=== PATIENT | male | born 1980 | race Caucasian/White ===

== ENCOUNTER → 2017-05-03 | Outpatient (CLI) | payer MEDICARE, MEDICAID ==
[~2017-05-03] MED LIST: ALDACTONE PO; ATIVAN; ATIVAN 0.50.5 MG/TAB PO; ATIVAN 1MG T1 MG/TAB PO; ATIVAN 2MG2 MG PO; ATIVAN1 MG PO; AUGMENTIN 875 M1 TAB PO; CELEXA40 MG PO; CLONAZEPAM PO; ESTROGEN PATCH; FLONASE NASAL S16 GM NS; GEODON 20 MG20 MG PO; KLONOPIN 0.5MG0.5 MG PO; KLONOPIN 1MG1 MG PO; LORTAB 5/500 501 TAB PO; LORTAB 7.5/5001 TAB PO; MAGIC MOUTHWASH1 M1 PO; MEDROL 4MG DOSPA4 MG PO; NAPROXEN EC500 MG PO; NO HOME MEDICATIONS; PREMARIN0.625 MG PO; PROTONIX 40MG T40 MG PO; PROTONIX40 MG PO; RISPERDAL 1M1 MG/TAB PO; RISPERDAL1 MG PO; SERTRALINE; TESSALON PERLE100 MG PO; ULTRAM 50MG TAB50 MG; ULTRAM50 MG PO; VISTARIL50 MG PO; ZITHROMAX1 GM/PACKE PO; ZOLOFT100 MG PO
== END ==
LOC: BHSO 14:00
DX: F25.0 Schizoaffective disorder, bipolar type (principal)

== ENCOUNTER → 2017-12-24 | Outpatient (CLI) | payer MEDICARE, MEDICAID | LOC: BHSO 08:50 | DX: F25.0 Schizoaffective disorder, bipolar type (principal) | CPT/HCPCS: G0463 ==

== ENCOUNTER → 2018-06-28 | Outpatient (CLI) | payer MEDICARE, MEDICAID | LOC: BHSO 13:21 | DX: F25.0 Schizoaffective disorder, bipolar type (principal) | CPT/HCPCS: G0463 ==

== ENCOUNTER → 2019-01-05 | Outpatient (CLI) | payer MEDICARE, MEDICAID | LOC: BHSO 13:59 | DX: F31.81 Bipolar II disorder (principal) | CPT/HCPCS: G0463 ==

== ENCOUNTER → 2019-08-04 | Outpatient (CLI) | payer MEDICARE, MEDICAID | LOC: BHSO 14:40 | DX: F31.81 Bipolar II disorder (principal) | CPT/HCPCS: G0463 ==

== ENCOUNTER → 2020-08-05 | Outpatient (CLI) | payer MEDICARE, MEDICAID | LOC: BHSO 15:28 | DX: F31.81 Bipolar II disorder (principal) | CPT/HCPCS: G0463 ==